=== PATIENT | female | born 1945 ===

== ENCOUNTER → 2021-02-09 06:37 | Outpatient (CLI) | payer MEDICARE, SELFPAY ==
[2021-02-09 16:46] LABS: SARS-CoV-2 RNA PCR Negative
== END ==
PROVIDERS: PCP Family Medicine; Visit Provider Physician Assistant
DX: R09.89 Other specified symptoms and signs involving the circulatory and respiratory systems (principal); Z20.822 Contact with and (suspected) exposure to COVID-19
CPT/HCPCS: C9803; U0003; U0005

== ENCOUNTER 2021-02-12 12:51 | Emergency (ER) | payer MEDICARE, SELFPAY ==
--- NOTE | 2021-02-12 12:59 | ED.URI ---
HPI - URI/Sore Throat General Chief Complaint: Upper Respiratory Infection Stated Complaint: Cough,Congestion Time Seen by Provider: 02/12/21 13:20 Source: patient and RN notes reviewed Mode of arrival: ambulatory Limitations: no limitations History of Present Illness HPI Narrative: 75-year-old female presents with concern for cough. She reports cough started approximately 3 weeks ago. Reports at that time she had mild nasal congestion, rhinorrhea. Reports the symptoms have mostly resolved she now has a tickle in her throat and postnasal drip. She denies taking any [id number] medications other than ibuprofen. She denies shortness of breath, fever, chills, body aches. Denies known sick contacts. MD elicited complaint: cough Related Data Home Medications Medication Instructions Recorded Confirmed No Home Medications 06/12/20 02/12/21 Allergies Allergy/AdvReac Type Severity Reaction Status Date / Time latex Allergy Unknown Skin Verified 02/12/21 13:08 Reaction risedronate sodium Allergy Unknown Unknown Verified 02/12/21 13:08 Review of Systems Review of Systems: Narrative: CONSTITUTIONAL: Denies malaise, chills, sweats, or fever. EYES: Denies visual changes, redness, or discharge. ENT: Denies rhinorrhea, congestion, sinus pain, otalgia and sore throat. Reports postnasal drip. CARDIOVASCULAR: Denies chest pain, palpitations, or edema. RESPIRATORY: Reports cough. Denies dyspnea. GASTROINTESTINAL: Denies abdominal pain, nausea, vomiting, diarrhea SKIN: Denies rash or itching. MUSCULOSKELETAL: Denies myalgia. NEUROLOGIC: Denies headache. All systems reviewed & are unremarkable except as noted in HPI and below PMFSH Family History Family History Father Family history of elevated blood lipids, Onset Age: 60 Family history of cardiovascular disease, Onset Age: 60 Sibling Family history of malignant neoplasm of breast in first degree relative Family history of malignant neoplasm of testis Mother Family history of malignant neoplasm of breast in first degree relative, Onset Age: 80 Other Family history of glaucoma No family history of diabetes mellitus No family history of hypertension No family history of malignant neoplasm Social History Social History Smoking status: Never smoker Alcohol intake: current Comments At time of signature, agree with nursing past medical, surgical, social and family history. There is no relevant family history pertinent to the presenting complaint Exam Narrative: Exam Narrative: GENERAL: Well-appearing, well-nourished, and in no acute distress. HEAD: Normocephalic EYES: PERRLA, conjunctivae clear ENT: Nares clear, turbinates erythematous, clear discharge. Mucous membranes moist. TM pearly calzada with sharp light reflex bilaterally; no tragal tenderness. Oropharynx not erythematous without lesions. Tonsils not enlarged and without exudate, no drooling, no hoarseness, no trismus, uvula midline. NECK: Supple. No lymphadenopathy CHEST: Clear to auscultation, breath sounds equal. No wheezing, rhonchi, rales, or stridor. No respiratory distress, speaks in full sentences. HEART: Regular rate and rhythm. No murmur heard. SKIN: Warm, dry, no rash. NEURO: Alert and oriented x3. PSYCH: Normal mood and affect Course Course Emergency Course: Patient is aware of diagnosis, understands and agrees to treatment plan. Anticipatory guidance given. Patient agrees to follow-up as directed and is aware of reasons to seek care at the emergency department. Portions of this record may have been created with voice recognition software Vital Signs Vital signs: Reviewed. MDM - URI/Sore Throat MDM Narrative Medical decision making narrative: Differential diagnosis considered: Lyons virus, strep pharyngitis, allergic rhinitis, upper respiratory tract infection, s
[2021-02-12 13:01] VITALS: BP 140/69; PULSE 78; RESP 18; TEMP 36.4; O2SAT 99
== END 2021-02-12 13:42 | disposition home or self-care (01) ==
PROVIDERS: Emergency Provider Nurse Practitioner; PCP Family Medicine
DX: J40 Bronchitis, not specified as acute or chronic (principal)
CPT/HCPCS: 99213; G0463